=== PATIENT | female | born 1950 | race African-American/Black ===

== ENCOUNTER 2021-04-13 22:39 | Emergency (ER) | payer MEDICARE ==
[~2021-04-13] VITALS: Ht 165.1 cm; Wt 55.0 kg
[2021-04-13] MEDS ORDERED: LISI-894 PO (23:01)
[2021-04-13] MEDS ORDERED: LABE100T8 PO (23:01)
[2021-04-13] MEDS ORDERED: ASPI-1450 PO (23:01)
[2021-04-13] MEDS ORDERED: METF-960 PO (23:01)
[2021-04-13] MEDS ORDERED: CLOP75TA60 PO (23:01)
[2021-04-13] MEDS ORDERED: LOSA25TA21 PO (23:01)
[2021-04-13] MEDS ORDERED: NIFE-64 PO (23:01)
[2021-04-14] MEDS ORDERED: PERTUSS(ACELL),DIPH,TET VAC/PF 0.5 ML SYRINGE IM. ONE (00:15)
[2021-04-14] MEDS ORDERED: CLINDAMYCIN HCL 150 MG CAPSULE PO ONE (00:15)
[2021-04-14] MEDS ORDERED: IBUPROFEN 600 MG TABLET PO ONE (00:15)
[2021-04-14 00:30] VITALS: BP 153/79
[2021-04-17] MEDS ORDERED: LABE200T6 PO (14:02)
== END 2021-04-14 02:26 | disposition home or self-care (01) ==
LOC: EMS 22:41
DX: S01.512A Laceration without foreign body of oral cavity, initial encounter (principal); L03.211 Cellulitis of face; W50.0XXA Accidental hit or strike by another person, initial encounter; Y93.89 Activity, other specified; Y92.89 Other specified places as the place of occurrence of the external cause; Y99.8 Other external cause status
CPT/HCPCS: 90471; 90715; 99283